=== PATIENT | male | born 1995 | race Two or more races ===

== ENCOUNTER 2023-06-04 08:19 | Emergency (ER) | payer MEDICAID ==
[~2023-06-04] VITALS: Ht 175.3 cm; Wt 86.3 kg
[2023-06-04 09:15] VITALS: BP 140/73; PULSE 57; RESP 18; TEMP 98.4; O2SAT 99
[2023-06-04] MEDS ORDERED: ALBU108A5 IN (09:44)
[2023-06-04] MEDS ORDERED: AZIT500T66 PO (09:44)
== END 2023-06-04 09:50 | disposition home or self-care (01) ==
LOC: ER 08:19
DX: J20.9 Acute bronchitis, unspecified (principal); R07.89 Other chest pain; F17.210 Nicotine dependence, cigarettes, uncomplicated
CPT/HCPCS: 71045